=== PATIENT | male | born 1985 | race Caucasian/White ===

== ENCOUNTER 2024-08-08 18:48 | Emergency (ER) | payer OTHER ==
[~2024-08-08] VITALS: Wt 120.2 kg
[2024-08-08] MEDS ORDERED: DEXTROAMPH SACC20 M1 PO (19:02)
[2024-08-08] MEDS ORDERED: Enoxaparin Sodium 100 MG/ML SYR SC SCH (22:00)
== END 2024-08-08 19:32 | disposition home or self-care (01) ==
LOC: ED 18:48
DX: M79.604 Pain in right leg (principal)

== ENCOUNTER → 2024-08-09 | Outpatient (CLI) | payer OTHER ==
[~2024-08-09] MED LIST: DEXTROAMPH SACC20 M1 PO
== END | disposition home or self-care (01) ==
LOC: US 09:02
PROVIDERS: ATTEND Internal Medicine
DX: M79.661 Pain in right lower leg (principal); Z87.891 Personal history of nicotine dependence